=== PATIENT | male | born 1940 | race Caucasian/White ===

== ENCOUNTER → 2021-11-09 | Outpatient (CLI) | payer MEDICARE ==
[2021-11-09 16:13] LABS: HEMOGLOBIN 13.7 gm/dl (14.0-17.5); RED BLOOD COUNT 4.23 M/UL (4.20-5.50); WHITE BLOOD COUNT 12.9 K/UL (4.5-11.0)
[2021-11-09 16:40] LABS: BUN/CREATININE RATIO 22 (0-10)
[2021-11-10 08:17] LABS: VITAMIN D, 25-HYDROXY 56.7 ng/mL (30.0-100.0)
== END ==
LOC: LAB 15:29
DX: J44.9 Chronic obstructive pulmonary disease, unspecified (principal); R53.83 Other fatigue; E03.9 Hypothyroidism, unspecified; E55.9 Vitamin D deficiency, unspecified; E87.6 Hypokalemia; M62.81 Muscle weakness (generalized)
CPT/HCPCS: 36415; 71046; 80053; 83735; 84439; 84443; 84481; 85027

== ENCOUNTER → 2021-11-25 | Outpatient (CLI) | payer MEDICARE | LOC: HEART 5 08:49 | DX: J44.9 Chronic obstructive pulmonary disease, unspecified (principal) | CPT/HCPCS: 94060; 94729 ==

== ENCOUNTER 2022-01-19 23:41 | Emergency (ER) | payer MEDICARE ==
[2022-01-20 00:36] LABS: HEMOGLOBIN 13.1 gm/dl (14.0-17.5); WHITE BLOOD COUNT 16.2 K/UL (4.5-11.0)
[2022-01-20] MEDS ORDERED: DOXYCYCLINE HY100 MG PO (05:32)
[2022-01-20] MEDS ORDERED: OMNICEF 300 MG300 MG PO (05:33)
== END 2022-01-20 05:45 | disposition home or self-care (01) ==
LOC: ER1 23:41
PROVIDERS: Family Medicine
DX: J44.0 Chronic obstructive pulmonary disease with (acute) lower respiratory infection (principal); J18.9 Pneumonia, unspecified organism; N28.9 Disorder of kidney and ureter, unspecified; I10 Essential (primary) hypertension; E03.9 Hypothyroidism, unspecified; Z20.822 Contact with and (suspected) exposure to COVID-19
CPT/HCPCS: 36600; 70450; 71045; 80053; 80307; 81001; 82550; 82553; 82803; 84484; 85025; 93005; 96360; 99285; U0002

== ENCOUNTER 2022-01-29 14:57 | Emergency (ER) | payer MEDICARE ==
[~2022-01-29] VITALS: Ht 175.3 cm; Wt 81.6 kg
[~2022-01-29 14:57] MED LIST: DOXYCYCLINE HY100 MG PO; OMNICEF 300 MG300 MG PO
[2022-01-29 15:22] LABS: HEMOGLOBIN 7.8 gm/dl (14.0-17.5); RED BLOOD COUNT 2.38 M/UL (4.20-5.50); WHITE BLOOD COUNT 29.2 K/UL (4.5-11.0)
== END 2022-01-30 00:01 ==
LOC: ER1 14:57
PROVIDERS: Family Medicine
DX: J44.9 Chronic obstructive pulmonary disease, unspecified (principal); K92.2 Gastrointestinal hemorrhage, unspecified; I10 Essential (primary) hypertension; E03.9 Hypothyroidism, unspecified; F17.200 Nicotine dependence, unspecified, uncomplicated
CPT/HCPCS: 36600; 70450; 71045; 80053; 80307; 81001; 82550; 82553; 82803; 83605; 84484; 85025; 85610; 87040; 87081; 93005; 94640; 94760; 96374; 96375; 99285; C9113; J2185; J3370; J7070

== ENCOUNTER 2022-02-16 17:51 | Observation (INO) | payer MEDICARE ==
[~2022-02-16] VITALS: Ht 172.7 cm; Wt 82.0 kg
[2022-02-16 19:14] LABS: HEMOGLOBIN 9.3 gm/dl (14.0-17.5); RED BLOOD COUNT 2.88 M/UL (4.20-5.50); WHITE BLOOD COUNT 9.8 K/UL (4.5-11.0)
[2022-02-16 19:43] LABS: BUN/CREATININE RATIO 17 (0-10)
[2022-02-17 07:33] LABS: HEMOGLOBIN 8.9 gm/dl (14.0-17.5); RED BLOOD COUNT 2.85 M/UL (4.20-5.50); WHITE BLOOD COUNT 8.8 K/UL (4.5-11.0)
[2022-02-17 08:01] LABS: BUN/CREATININE RATIO 16 (0-10)
[2022-02-17] MEDS ORDERED: MONTELUKAST SOD10 MG PO (12:02)
[2022-02-17] MEDS ORDERED: OLANZAPINE10 MG PO (12:03)
[2022-02-17] MEDS ORDERED: AMLODIPINE BESYL5 MG PO (12:04)
[2022-02-17] MEDS ORDERED: PROTONIX40 MG PO (12:04)
[2022-02-17] MEDS ORDERED: LEVOTHYROXINE25 MCG PO (12:05)
[2022-02-17] MEDS ORDERED: ESCITALOPRAM OX10 MG PO (12:05)
[2022-02-17] MEDS ORDERED: PRESERVISION A1 EACH PO (12:06)
[2022-02-17] MEDS ORDERED: BUPROPION XL150 MG PO (12:06)
[2022-02-18] MEDS ORDERED: ATIVAN IV/IM2 MG/ML IV (17:49)
[2022-02-18] MEDS ORDERED: MORPHINE SULFATE IVP (17:49)
[2022-02-19] MEDS ORDERED: MIRALAX17 GM PO (12:48)
[2022-02-19] MEDS ORDERED: ADULT GLYCERIN1 EACH PR (12:48)
== END 2022-02-19 17:35 ==
LOC: ER1 17:51 → MED SURG 4 23:31 → CDU 23:31 → MED SURG 4 02-17 00:51
PROVIDERS: Emergency Medicine; Internal Medicine; ADMIT Internal Medicine
DX: J44.9 Chronic obstructive pulmonary disease, unspecified (principal); J96.21 Acute and chronic respiratory failure with hypoxia; K92.2 Gastrointestinal hemorrhage, unspecified; E03.9 Hypothyroidism, unspecified; I10 Essential (primary) hypertension; E78.5 Hyperlipidemia, unspecified; J90 Pleural effusion, not elsewhere classified; Z66 Do not resuscitate; Z99.81 Dependence on supplemental oxygen; Z87.891 Personal history of nicotine dependence; Z82.49 Family history of ischemic heart disease and other diseases of the circulatory system
CPT/HCPCS: 0241U; 36415; 70450; 71045; 71250; 80048; 80053; 80307; 81001; 82140; 82550; 82553; 82962; 83605; 83735; 83880; 84100; 84484; 85025; 85610; 85730; 86140; 87040; 87086; 93005; 94640; 94760; 96365; 96375; 96376; 99285; G0378; G0480; J1940; J2270; J2543; J2920